=== PATIENT | female | born 1970 | race Two or more races ===

== ENCOUNTER → 2016-09-07 | Day surgery (SDC) | payer MEDICAID ==
[~2016-09-07] VITALS: Ht 162.6 cm; Wt 72.0 kg
[~2016-09-07] MED LIST: *Lactated Ringer's INJ 1,000 ML ONE; *MEPERIDINE 25 MG INJ VIAL PERIprocedural Use ONLY ONE; ACETAMINOPHEN/HYDROcodone 325 MG/5 MG TAB PO PRN; BUPIVACAINE/EPINEPHRINE 0.25% PF 30 ML VIAL ONE; CHLORHEXIDINE GLUCONATE 2 % 1 PACK (2 CLOTHS) TOPICAL PRN; CHLORHEXIDINE GLUCONATE 4% SOLN 120 ML BTL TOPICAL SCH; COUM2.5T PO; COUM3TAB PO; ENAL10TA PO; HYDR12.56 PO; INSULIN HUMAN REGULAR 1,000 UNITS/10 ML VIAL SQ PRN; KETOROLAC TROMETHAMINE 30 MG/ML (IVP) VIAL IM PRN; LACTATED RINGER'S 1000 ML IV PRN; LEVO25TA4 PO; LEVO50TA4 PO; METOPROLOL TARTRATE 25 MG TAB PO PRN; MIDAZOLAM HCL 2 MG/2 ML VIAL ONE; MORPHINE SULFATE 4 MG/ML INJ ONE; ONDANSETRON HCL 4 MG/2 ML VIAL IV PUSH ONE; ONDANSETRON HCL 4 MG/2 ML VIAL IV PUSH PRN; PANT40TA3 PO; POVIDONE IODINE 5% (ANTISEPSIS KIT) 4 APPLICATIONS EACH NARE PRN; PROPOFOL 200 MG/20 ML AMP IV ONE; SIMV10TA PO; SODIUM CHLORID 0.9% 500 ML IV PRN; TRIAMCINOLONE ACETONIDE 40 MG/ML VIAL ONE
[2016-09-07 09:27] VITALS: BP 113/76; PULSE 64; RESP 18; TEMP 98.8; O2SAT 99
[2016-09-07 12:02] VITALS: PULSE 95
[2016-09-07 13:00] VITALS: PULSE 87; TEMP 98.4
[2016-09-07 13:35] VITALS: BP 135/88; PULSE 84; RESP 16; O2SAT 99
--- NOTE | 2016-09-09 16:58 | MP ---
cc: TYLER HUSTON M.D. DATE OF SURGERY: 09/07/2016. PREOPERATIVE DIAGNOSIS: Pain left knee joint. POSTOPERATIVE DIAGNOSIS: Chondromalacia patellofemoral joint. OPERATIVE PROCEDURE PERFORMED: Arthroscopic chondroplasty patella with partial synovectomy. SURGEON: Tyler Huston MD. DESCRIPTION OF THE PROCEDURE IN DETAIL: The patient was placed on the operating table in the supine position and adequate general anesthesia was administered by the anesthesiologist. The patient's left knee was then prepped and draped in the usual sterile fashion. An Esmarch bandage was applied to the left lower extremity and a pneumatic tourniquet was inflated at the level of the thigh to 300. An anterolateral portal was used for introduction of the scope and a systematic examination of knee joint revealed findings of grade 2 chondromalacia of the patellofemoral joint with surrounding synovitis and thickening of the synovial tissue. The intercondylar fossa was entered and found to be unremarkable with intact anterior and posterior cruciate ligaments. The medial compartment was then entered and the articular surfaces appeared to be well-preserved and the medial meniscus appeared to be intact. The scope was then placed into the lateral compartment and also pristine findings were present with no tear of the lateral meniscus and no articular surface arthritis was noted. The anteromedial portal was used for introduction of the resector and a chondroplasty of the patella articular surface was then carried out along with excision of the surrounding synovial tissue within the suprapatellar pouch and in the anterior intercondylar fossa. After a thorough irrigation, all instruments were removed and two stab wounds closed with 3-0 nylon. An intra-articular injection of 10 mL of 0.25% Marcaine with epinephrine was injected through the lateral portal. Sterile dressings were applied over the wound followed by application of a bulky dressing. Examination of the foot revealed adequate return of circulation after the tourniquet was deflated after 20 minutes. This procedure was tolerated well and the patient was transferred to the recovery room in satisfactory condition. Sponge count, needle counts and instrument counts were reported to be correct x2. Tyler Huston MD [facility] /12:02 PM /4:57 PM
== END | disposition home or self-care (01) ==
LOC: PHSDC 08:19
PROVIDERS: ATTEND Orthopaedic Surgery
DX: M22.42 Chondromalacia patellae, left knee (principal); I10 Essential (primary) hypertension; E07.9 Disorder of thyroid, unspecified
CPT/HCPCS: 01400; 29875; J2175; J2250; J2270; J2405; J3010; J3301; J7120